=== PATIENT | male | born 1975 | race Caucasian/White ===

== ENCOUNTER 2020-10-08 08:25 | Emergency (ER) | payer SELFPAY ==
[2020-10-08 08:37] VITALS: BP 136/79; PULSE 100; RESP 16; TEMP 37.2; O2SAT 97
--- NOTE | 2020-10-08 08:37 | ED.ABDPAIN ---
HPI - Abdominal Pain General Chief Complaint: Abdominal Pain Stated Complaint: left side pain Time Seen by Provider: 10/08/20 08:37 Source: patient and RN notes reviewed Mode of arrival: ambulatory Limitations: no limitations History of Present Illness HPI narrative: 45-year-old male presents to the [facility] with complaints of left upper quadrant pain for the last 3 to 4 days, gradually getting worse. Patient states I know I have something really bad. pain is worse when he eats and drinks. Has vomitied x1- bile. Last BM yesterday-Normal Denies CP or SOB. No issues with urination. MD elicited complaint: abdominal pain Onset (ago): day(s) (3-4) Related Data Home Medications Medication Instructions Recorded Confirmed No Home Medications 10/08/20 10/08/20 Allergies Allergy/AdvReac Type Severity Reaction Status Date / Time No Known Allergies Allergy Unknown Verified 10/08/20 08:47 Review of Systems Review of Systems: All systems reviewed & are unremarkable except as noted in HPI and below Constitutional: Constitutional: Reports no additional constitutional complaints, Denies chills and Denies fever(s) Cardiovascular: Cardiovascular: Reports no additional cardiovascular complaints and Denies chest pain Respiratory: Respiratory: Reports no additional respiratory complaints, Denies cough, Denies dyspnea and Denies wheezing Gastrointestinal: Gastrointestinal: Reports as per HPI, Reports abdominal pain, Denies constipation, Denies diarrhea, Reports nausea and Reports vomiting Genitourinary: Genitourinary: Reports no additional male genitourinary complaints Musculoskeletal: Musculoskeletal: Reports no additional musculoskeletal complaints, Denies back pain and Denies muscle cramps Integumentary/Breasts: Skin/Breast: Reports system reviewed and no additional complaints, except as docu Neurologic: Reports system reviewed and no additional complaints, except as documented Psychiatric: Psychiatric: Reports no additional psychiatric complaints PMFSH Social History Social History Gender identity (if verbalized by the patient): Male Comments At the time of my signature, I reviewed and agree with the nursing past medical, surgical, social, and family history. There is no relevant family history pertinent to the patient complaint. Exam Const: General: healthy appearing and alert Nutritional Appearance: well nourished Orientation/consciousness: patient oriented x3 Limitations: no limitations and altered mental status Other: Appeared in pain, mildly diaphoretic HENMT: Head: normal to inspection Neck: Neck: normal visual inspection and no lymphadenopathy Chest: Chest palpation & inspection: normal inspection of the chest Resp: Effort & Inspection: normal respiratory effort and no use of accessory muscles Auscultation: clear to auscultation bilaterally, no crackles, no rales, no rhonchi and no wheezes Cardio: Rate: regular rate Rhythm: regular rhythm GI: Inspection: distended GI Palp: Yes Tenderness to palpation present (GI) and Yes Guarding due to palpation present (GI) (Left upper quadrant, epigastric) Auscultation: normal bowel sounds Abdomen image: 1. Tenderness, pain with palpation Back/Spine/Pelvis: Back: no CVA tenderness Skin: General skin exam: normal color Rashes: no rashes Neuro: General: patient oriented x3 Extrem: General: normal to inspection and no pedal edema Psych: Appearance: grossly normal and well kempt Mental Status: mental status grossly normal Affect: normal affect Attitude: cooperative Thought content: Yes Normal thought content present Course Course Emergency Course: Transfer instructions reviewed with patient, as well as provided in writing per nursing staff. Discussed the importance of not eating and going directly to the emergency room for labs and a CT scan. The instructions also include specific and strict GO TO
== END 2020-10-08 08:42 | disposition short-term general hospital (02) ==
PROVIDERS: Emergency Provider Nurse Practitioner
DX: R10.822 Left upper quadrant rebound abdominal tenderness (principal)
CPT/HCPCS: 99212; G0463

== ENCOUNTER 2020-10-08 11:12 | Emergency (ER) | payer SELFPAY ==
--- NOTE | ~2020-10-08 | CT_ITS ---
EXAMINATION: CT abdomen pelvis w con EXAM DATE: 10/08/2020 12:48 INDICATION: Left upper abdominal pain. TECHNIQUE: Spiral CT of the abdomen and pelvis was performed following intravenous injection of 100 m L Omnipaque 350. Axial, coronal and sagittal images of the abdomen and pelvis were reviewed. The do se-length product (DLP) for this examination was 633.87 mGy-cm. The exposure was tailored according to patient size (auto mA exposure control), and iterative reconstruction (ASIR) was used as additiona l dose reduction technique. There is no prior study for comparison. FINDINGS: The liver, spleen, adrenal glands and pancreas are unremarkable. The gallbladder is contra cted but otherwise unremarkable. Portal and splenic veins are patent. Kidneys enhance symmetrically . There is no hydronephrosis. The uterus is not identified and has likely been surgically resected . The bladder is unremarkable. There are prominent number of normal-sized retroperitoneal lymph nod es, with mild fat stranding. There is mild scattered arteriosclerotic disease. The appendix is normal. The stomach and small bowel are unremarkable. There is expected amount of c olonic stool. No free intraperitoneal gas. The heart is normal in size. There are no pericardial or pleural effusions. Dependent subsegmental atelectasis. The bones are unremarkable. IMPRESSION: 1. No acute abdominal findings. 2. Prominent number of normal sized retroperitoneal lymph nodes probably reactive; recommend 3 month follow-up CT abdomen. Reviewed, dictated and finalized at location A. IMPRESSION: 1. No acute abdominal findings. 2. Prominent number of normal sized retroperitoneal lymph nodes probably react bakari; recommend 3 month follow-up CT abdomen.
--- NOTE | 2020-10-08 11:23 | ECG_ITS ---
Measurements Intervals [place] Rate: 89 P: 50 IA: 145 QRS: 12 QRSD: 84 T: 40 QT: 350 QTc: 428 Interpretive Statements SINUS RHYTHM DELAYED PRECORDIAL R/S TRANSITION BASELINE ARTIFACT- I, II, III, AVR, AVL, AVF, V1 BORDERLINE ECG Electronically Signed On 10-08-2020 15:19:14 CDT by Fabricio Ferguson D.O.
[2020-10-08 11:28] VITALS: BP 150/104; PULSE 96; RESP 17; TEMP 36.7; O2SAT 96
--- NOTE | 2020-10-08 11:40 | ED.ABDPAIN ---
HPI - Abdominal Pain General Chief Complaint: Abdominal Pain Stated Complaint: lt abd pain Time Seen by Provider: 10/08/20 11:18 Source: patient and RN notes reviewed Mode of arrival: ambulatory Limitations: no limitations History of Present Illness HPI narrative: This is a 45 year old male who presents for evaluation of epigastric and left upper abdominal pain. He developed pain 2- 3 days ago. He reports this pain is constant and it waxes and wanes. He states his pain worsens with eating and drinking. He denies radiation of his pain. He states he had vomiting 2 days ago but he has been able to tolerate PO since. He denies diarrhea or urinary complaints. He thinks he may have had a fever because he has occasional sweats. Pain 5/10 currently. He does drink alcohol 5 out of 7 days a week. Related Data Allergies Allergy/AdvReac Type Severity Reaction Status Date / Time No Known Allergies Allergy Unknown Verified 10/08/20 11:31 Review of Systems Review of Systems: All systems reviewed & are unremarkable except as noted in HPI and below Constitutional: Constitutional: Reports chills Cardiovascular: Cardiovascular: Denies chest pain Respiratory: Respiratory: Denies cough and Denies dyspnea Gastrointestinal: Gastrointestinal: Reports abdominal pain, Denies diarrhea, Reports nausea and Reports vomiting PMFSH Past Medical History Medical History (Updated 10/08/20 @ 14:20 by Carolina Moreno MD) Patient denies medical problems Surgical History Surgical History (Updated 10/08/20 @ 14:11 by Carolina Moreno MD) No pertinent past surgical history Social History Social History (Updated 10/08/20 @ 14:14 by Carolina Moreno MD) Smoking status: Current every day smoker Alcohol intake: current Substance use: never Gender identity (if verbalized by the patient): Male Exam Const: General: no acute distress and alert Orientation/consciousness: patient oriented x3 HENMT: Head: normocephalic and atraumatic Throat: posterior oropharynx normal, tonsils normal and uvula midline Eyes: EOM: EOMs intact bilaterally Resp: Effort & Inspection: normal respiratory effort and no retractions Auscultation: clear to auscultation bilaterally Cardio: Rate: regular rate Rhythm: regular rhythm Heart sounds: no murmurs GI: GI Palp: Yes Soft to palpation, Yes Tenderness to palpation present (GI) (epigastric, LUQ), No Guarding due to palpation present (GI) and No Rigid due to palpation Auscultation: normal bowel sounds Skin: General skin exam: normal color Rashes: no rashes Neuro: General: patient oriented x3, moves all extremities and CN's II-XI intact bilaterally Psych: Mental Status: mental status grossly normal Affect: normal affect Course Reevaluation(s) Reevaluation #1: I discussed with patient that CT showed some lypmphadenopathy but no other finding. I discussed that he will be treated for PUD and he will need to follow up with a primary care physician or GI for further evaluation. Date: 10/08/20 Time: 14:15 Vital Signs Vital signs: Vital Signs Temperature 98.0 F 10/08/20 11:28 Pulse Rate 96 10/08/20 11:28 Respiratory Rate 17 10/08/20 11:28 Blood Pressure 150/104 H 10/08/20 11:28 Pulse Oximetry 96 10/08/20 11:28 Temperature 98.0 F 10/08/20 11:28 Pulse Rate 91 10/08/20 11:51 Respiratory Rate 20 10/08/20 11:51 Blood Pressure 139/80 10/08/20 11:51 Pulse Oximetry 98 10/08/20 11:51 MDM - Abdominal Pain Lab Data Attestation: I reviewed the patient's lab results. Result diagrams: 10/08/20 11:35 10/08/20 11:35 Labs: Lab Results 10/08/20 10/08/20 10/08/20 Range/Units 11:35 11:35 11:35 WBC 11.3 H (4.5-10.0) K/mm3 RBC 5.70 (4.6-6.20) M/mm3 Hgb 17.9 (14.0-18.0) g/dL Hct 52.6 H (42.0-52.0) % MCV 92.3 (80-100) fl MCH 31.4 (26-34) pg MCHC 34.0 (32-36) g/dl RDW 12.9 (11.5-14.5)
[2020-10-08 11:48] LABS: Basophils Percent Auto 0.2 % (0.2-1.2); Eosinophils Percent Auto 0.1 % (0-4.4); Hematocrit 52.6 % (42.0-52.0); Hemoglobin 17.9 g/dL (14.0-18.0); Immature Granulocyte Absolute 0.04 K/mm3 (0.00-0.031); Immature Granulocyte Percent A 0.4 % (0-0.5); Lymphocytes Absolute Auto 0.85 K/mm3 (0.9-3.2); Lymphocytes Percent Auto 7.5 % (18.3-44.2); Mean Corpuscular Hemoglobin 31.4 pg (26-34); Mean Corpuscular Volume 92.3 fl (80-100); Monocytes Absolute Auto 1.1 K/mm3 (0.1-0.6); Monocytes Percent Auto 9.4 % (2.6-8.5); Neutrophils Absolute Auto 9.3 K/mm3 (1.3-6.7); Neutrophils Percent Auto 82.4 % (45.5-73.1); Platelet Count Result 211 k/mm3 (150-375); Red Cell Distribution Width 12.9 % (11.5-14.5); White Blood Count 11.3 K/mm3 (4.5-10.0)
[2020-10-08] MEDS: PANTOPRAZOLE SODIUM IV 40 MG VIAL IV PUSH (11:48)
[2020-10-08] MEDS: ONDANSETRON INJ 4 MG/2 ML VIAL IV PUSH (11:48)
[2020-10-08] MEDS: LACTATED RINGERS 1,000 ML 999 ML IV CONT (11:48)
[2020-10-08 11:51] VITALS: BP 139/80; PULSE 91; RESP 20; O2SAT 98
[2020-10-08 11:55] LABS: Add Urine Microscopic? YES; Appearance Urine Clear (Clear); Bilirubin Urine 1+ (Negative); Blood Urine Negative (Negative); Color Urine Amber (Yellow); Glucose Urine UA Negative (Negative); Ketones Urine Negative (Negative); Leukocyte Esterase Ur Negative LEU/UL (Negative); Mucus Urine Heavy /lpf; Nitrate Urine Negative (Negative); Protein Urine 2+ mg/dL (Negative); RBC Urine 0-2 /hpf (0-2); Squamous Epithelial Cell Urine Rare /hpf (Few)
[2020-10-08 11:59] LABS: Alanine Aminotransferase 22 U/L (4-50); Albumin Level 4.2 g/dL (3.5-5.1); Alkaline Phosphatase 67 U/L (38-126); Anion Gap 11 mmol/L (8-16); Aspartate Amino Transferase 29 U/L (17-59); Bilirubin,Total 0.5 mg/dL (0.2-1.3); Blood Urea Nitrogen 12 mg/dL (9-20); Carbon Dioxide 26 mmol/L (22-30); Chloride 103 mmol/L (98-107); Estimated CRCL calculation 120 ml/min; Estimated Glomerular Filt Rate > 60; Glucose 108 mg/dL (75-110); Lipase 74 U/L (23-300); Potassium 3.5 mmol/L (3.4-5.0); Sodium 140 mmol/L (137-145)
[2020-10-08 12:00] LABS: Specific Grav Ur 1.038 (1.001-1.035)
[2020-10-08] MEDS: BELLADONNA ALK/PHENOB ELIX 10 ML, MAG HYDROX/ALUMINUM HYD/SIMETH 30 ML, LIDOCAINE HCL 2... PO (13:58)
== END 2020-10-08 14:33 | disposition home or self-care (01) ==
PROVIDERS: Emergency Provider General Practice
DX: R10.12 Left upper quadrant pain (principal); R10.13 Epigastric pain; F17.200 Nicotine dependence, unspecified, uncomplicated
CPT/HCPCS: 36415; 74177; 80053; 81001; 83690; 85025; 93005; 96365; 96375; 99284; A9270; C9113; J0131; J2405; J7120; Q9967

== ENCOUNTER 2020-10-11 10:05 | Emergency (ER) | payer SELFPAY ==
[2020-10-11 10:14] VITALS: BP 128/95; PULSE 102; RESP 18; TEMP 35.9; O2SAT 99
--- NOTE | 2020-10-11 10:23 | ED.WOUNDLAC ---
HPI - Wound/Laceration General Chief Complaint: Wound/Laceration Stated Complaint: Spider Bite Time Seen by Provider: 10/11/20 10:15 Source: patient, family () and RN notes reviewed Mode of arrival: ambulatory Limitations: no limitations History of Present Illness HPI narrative: 45 yo male presents to the [facility] with C/O redness and drainage to the right chest area. Believes that he was bite by a spider 5-6 days ago and states that it just looked like a pimple. Over the last couple days the redness and pain increased. states that she tried cutting it open with nail trimmers last night to help it drain. redness and warmth noted to the area. Fluctuant center noted Related Data Allergies Allergy/AdvReac Type Severity Reaction Status Date / Time No Known Allergies Allergy Unknown Verified 10/08/20 11:31 Review of Systems Review of Systems: All systems reviewed & are unremarkable except as noted in HPI and below Constitutional: Constitutional: Reports as per HPI, Reports chills and Denies fever(s) Cardiovascular: Cardiovascular: Reports no additional cardiovascular complaints and Denies chest pain Respiratory: Respiratory: Reports no additional respiratory complaints, Denies cough, Denies dyspnea and Denies wheezing Musculoskeletal: Musculoskeletal: Reports no additional musculoskeletal complaints Integumentary/Breasts: Skin/Breast: Reports as per HPI and Reports erythema (right pectoral area) Neurologic: Reports system reviewed and no additional complaints, except as documented, Denies dizziness, Denies headache(s), Denies focal weakness, Denies numbness and Denies weakness Psychiatric: Psychiatric: Reports no additional psychiatric complaints PMFSH Past Medical History Medical History (Updated 10/11/20 @ 10:54 by Josefa Garrido) Patient denies medical problems Surgical History Surgical History No pertinent past surgical history Social History Social History Smoking status: Current every day smoker Alcohol intake: current Substance use: never Gender identity (if verbalized by the patient): Male Comments At the time of my signature, I reviewed and agree with the nursing past medical, surgical, social, and family history. There is no relevant family history pertinent to the patient complaint. Exam Const: General: healthy appearing, no acute distress and alert Nutritional Appearance: well nourished Orientation/consciousness: patient oriented x3 HENMT: Head: normal to inspection Neck: Neck: normal visual inspection, no lymphadenopathy and no meningeal signs Chest: Chest palpation & inspection: normal inspection of the chest Resp: Effort & Inspection: normal respiratory effort and no use of accessory muscles Auscultation: clear to auscultation bilaterally, no crackles, no rales, no rhonchi and no wheezes Cardio: Rate: regular rate Rhythm: regular rhythm Back/Spine/Pelvis: Back: no CVA tenderness Skin: Wounds: wounds noted Full body images: 1. 5 x 5-1/2 cm red, raised with fluctuant center. Hot to touch. Induration noted to the center. No necrosis. Neuro: General: patient oriented x3 and moves all extremities Speech: normal speech Gait exam (Neuro): Normal gait present Extrem: General: normal to inspection Psych: Appearance: grossly normal and well kempt Mental Status: mental status grossly normal Affect: normal affect Attitude: cooperative Thought content: Yes Normal thought content present Course Course Emergency Course: Discharge instructions reviewed with and patient, as well as provided in writing per nursing staff. The instructions also include specific and strict return/GO TO THE ER as well as f/u information. All questions have been answered, and the and patient deny any further questions with discharge and discharge plan. Specifically discussed
[2020-10-11] MEDS: cefTRIAXone 1 GM VIAL IM (10:56)
[2020-10-11] MEDS: LIDOCAINE HCL 1% LOCAL INJ 20 ML VIAL 2.1 ML IM (10:56)
== END 2020-10-11 11:13 | disposition home or self-care (01) ==
PROVIDERS: Emergency Provider Nurse Practitioner
DX: L02.213 Cutaneous abscess of chest wall (principal); L03.313 Cellulitis of chest wall; F17.200 Nicotine dependence, unspecified, uncomplicated
CPT/HCPCS: 10060; 87070; 87147; 87186; 87205; 96372; 99213; G0463; J0696

== ENCOUNTER 2023-09-04 17:09 | Emergency (ER) | payer MEDICAID, SELFPAY ==
--- NOTE | ~2023-09-04 | XR_ITS ---
EXAMINATION: XR knee RT 3V DATE: 09/04/2023 17:59 INDICATION: Right knee pain. TECHNIQUE: 3 views of right knee were obtained. COMPARISON: Right knee radiographs 01/21/2011 FINDINGS: Bone alignment is normal. No fracture. There is mild tricompartmental osteoarthritis charac terized by tiny osteophytes. There is a small knee joint effusion. IMPRESSION: 1. Mild right knee osteoarthritis. 2. Small right knee joint effusion. Reviewed, dictated and finalized at location E.
[2023-09-04 17:24] VITALS: BP 143/79; PULSE 86; RESP 16; TEMP 36.6; O2SAT 98
--- NOTE | 2023-09-04 17:57 | ED.LOWEXIN ---
HPI - Extremity Injury (Lower) General Chief Complaint: Extremity Injury, Lower Stated Complaint: R knee Time Seen by Provider: 09/04/23 17:57 Focused HPI: Phu is a 40-year-old male patient presenting to the emergency room today with complaints of right knee pain x2 days. X-ray of the right knee was placed Patient screened in triage and initial orders placed. Additional care and disposition to be based upon diagnostic testing and treatment. Source: patient Mode of arrival: ambulatory Limitations: no limitations Related Data Allergies Allergy/AdvReac Type Severity Reaction Status Date / Time No Known Allergies Allergy Unknown Verified 09/04/23 17:10 [facility] Past Medical History Medical History (Updated 10/12/20 @ 00:00 by [facility] Tamara) Patient denies medical problems Surgical History Surgical History No pertinent past surgical history Social History Social History Smoking status: Current every day smoker Alcohol intake: current Substance use: never Gender identity (if verbalized by the patient): Male Comments At the time of my signature, I reviewed and agree with the nursing past medical, surgical, social, and family history. There is no relevant family history pertinent to the patient complaint. Course Course Emergency Course: Portions of this record may have been created with voice recognition software. Vital Signs Vital signs: Vital Signs Temperature 36.6 C 09/04/23 17:24 Pulse Rate 86 09/04/23 17:24 Respiratory Rate 16 09/04/23 17:24 Blood Pressure 143/79 H 09/04/23 17:24 Pulse Oximetry 98 09/04/23 17:24 Oxygen Delivery Room Air 09/04/23 17:24 Temperature 36.6 C 09/04/23 17:24 Pulse Rate 86 09/04/23 17:24 Respiratory Rate 16 09/04/23 17:24 Blood Pressure 143/79 H 09/04/23 17:24 Pulse Oximetry 98 09/04/23 17:24 Oxygen Delivery Room Air 09/04/23 17:24 Vital signs reviewed Discharge Plan Discharge Prescriptions: No Action cephalexin 500 mg capsule 500 mg PO Q8H 10 Days Qty: 30 0RF sulfamethoxazole-trimethoprim [Bactrim DS] 800-160 mg tablet 1 tablet PO Q12H Qty: 20 0RF omeprazole 40 mg capsule,delayed release(DR/EC) 40 mg PO DAILY Qty: 30 0RF Follow-up/Referrals: UNKNOWN,DOCTOR [Primary Care Provider] - Quality NIHSS Nursing Documentation ED NIHSS nursing documentation: reviewed/agree
--- NOTE | 2023-09-04 19:14 | ED.LOWEXIN ---
HPI - Extremity Injury (Lower) General Chief Complaint: Extremity Injury, Lower Stated Complaint: R knee Time Seen by Provider: 09/04/23 17:57 Source: patient Mode of arrival: ambulatory Limitations: no limitations History of Present Illness HPI Narrative: 48-year-old male presents to emergency department for right knee pain for couple days. Patient states he works out daily in a few days ago woke up with pain to his right knee. States it has progressively gotten worsened. It is worse with weight-bearing, certain movements and extension of his knee. Denies fever, vomiting. No recent surgeries or procedures on his knees. No injury or trauma. Related Data Allergies Allergy/AdvReac Type Severity Reaction Status Date / Time No Known Allergies Allergy Unknown Verified 09/04/23 17:10 Review of Systems Review of Systems: CONSTITUTIONAL: Denies fever, chills, or sweats. EYES: Denies visual changes, redness, or discharge. ENT: Denies rhinorrhea, congestion, sore throat, or otalgia. CARDIOVASCULAR: Denies chest pain, palpitations, or edema. RESPIRATORY: Denies cough or dyspnea. GASTROINTESTINAL: Denies abdominal pain, nausea, vomiting, or diarrhea. GENITOURINARY: Denies dysuria or hematuria. SKIN: Denies rash or itching. MUSCULOSKELETAL: See HPI NEUROLOGIC: Denies headache, numbness, or weakness. PSYCHIATRIC: Denies anxiety or depression. [facility] Past Medical History Medical History Patient denies medical problems Surgical History Surgical History No pertinent past surgical history Social History Social History Smoking status: Current every day smoker Alcohol intake: current Substance use: never Gender identity (if verbalized by the patient): Male Exam Narrative: GENERAL: Well-appearing, well-nourished, and in no acute distress. HEAD: Normocephalic, atraumatic. NECK: Supple. CHEST: Clear to auscultation. No respiratory distress. HEART: Regular rate and rhythm. No murmur heard. Normal peripheral pulses. EXTREMITIES: RLE: Knee without erythema, edema or obvious deformity. No tenderness throughout need to palpation. Full active and passive range of motion with worsening pain with extension of knee. No tenderness with varus or valgus stress. No laxity with anterior or posterior drawer. DP pulse 2 +. Sensation intact. SKIN: Warm, dry, no rash. NEURO: No focal deficits. Alert and oriented x3 Course Vital Signs Vital signs: Vital Signs Temperature 97.9 F 09/04/23 17:24 Pulse Rate 86 09/04/23 17:24 Respiratory Rate 16 09/04/23 17:24 Blood Pressure 143/79 H 09/04/23 17:24 Pulse Oximetry 98 09/04/23 17:24 Oxygen Delivery Room Air 09/04/23 17:24 Temperature 97.9 F 09/04/23 17:24 Pulse Rate 86 09/04/23 17:24 Respiratory Rate 16 09/04/23 17:24 Blood Pressure 143/79 H 09/04/23 17:24 Pulse Oximetry 98 09/04/23 17:24 Oxygen Delivery Room Air 09/04/23 17:24 MDM - Extremity Injury (Lower) MDM Narrative Medical decision making narrative: 48-year-old male presents emergency department for right knee pain for the past few days. No injury trauma. Vital stable. Exam is significant for the above. No exam findings consistent with septic joint my no obvious deformity. No significant tenderness. He is neurovascularly intact. X-ray of the knee shows mild right knee osteoarthritis with small right knee joint effusion. Imaging and exam discussed. Patient was placed in an [place] wrap and provided Flexeril and naproxen as well as PCP follow-up. He politely declined crutches. Encouraged RICE. Strict ED return precautions discussed. He is agreeable to plan verbalized understanding. Discharged in stable condition. Discharge Plan Discharge Clinical Impression: Knee pain Qualifiers: Chronicity:
[2023-09-04] MEDS: NAPROXEN 500 MG TABLET PO (19:24)
[2023-09-04] MEDS: CYCLOBENZAPRINE HCL 10 MG TABLET PO (19:24)
== END 2023-09-04 19:26 | disposition home or self-care (01) ==
PROVIDERS: Emergency Provider Physician Assistant
DX: M25.561 Pain in right knee (principal); F17.210 Nicotine dependence, cigarettes, uncomplicated
CPT/HCPCS: 73562; 99283; A9270